=== PATIENT | female | born 1945 | race Caucasian/White ===

== ENCOUNTER → 2023-11-25 11:55 | Outpatient (REF) | payer OTHER, SELFPAY | LOC: HWWDC 11:55 | PROVIDERS: ATTENDING PHYSICIAN Internal Medicine Geriatric Medicine | DX: Z12.31 Encounter for screening mammogram for malignant neoplasm of breast (principal) | CPT/HCPCS: 77063; 77067 ==

== ENCOUNTER 2024-10-22 08:46 | Emergency (ER) | payer OTHER, SELFPAY ==
[2024-10-22 09:10] VITALS: BP 140/83
[2024-10-22 11:22] VITALS: BP 136/75
--- NOTE | 2024-10-22 11:28 | ED.GENMED ---
History of Present Illness
General
Chief Complaint: DVT/Possible Blood Clot
Source: patient
Time Seen by Provider: 10/22/24 09:59
History of Present Illness
History of Present Illness:
This patient is an 79-year-old female presents emergency department with complaints of redness and a 'bump' at the right anterior jimenez that she first noticed today. She denies any other complaints. She was on her way to the hospital to visit her
and decided to come to the emergency department to have it evaluated. She denies fever, chills, chest pain, shortness of breath, recent injury, recent trauma, drainage, numbness, tingling, weakness, foreign body sensation, or other
complaints. Patient saw her primary care doctor yesterday with a clean bill of health
Past History
Past History
ED Past Medical History: HTN and Other (Arthritis)
ED Past Surgical History: Other (n/a)
Social History
Tobacco: Non-smoker
Alcohol: None
Drug: None
Personal:
Living: with family
Phy Exam
Physical Exam
Physical Exam:
GENERAL: Alert , in no apparent distress
EYE: pupils equal and round
NECK: Supple, no significant adenopathy.
ENT: o/p clr, mmm.
CARDIAC: Regular rate and rhythm .
LUNGS: Clear breath sounds bilaterally, no acute respiratory distress, no wheezes/rales/rhonchi
ABDOMEN: Soft, without focal tenderness, no r/g, no cvat
NEUROLOGICAL: Alert and oriented, no focal neuro deficits
SKIN: Warm and dry, skin intact.
MUSCULOSKELETAL: No edema, well perfused. There is a specific area noted at the right mid jimenez with mild soft tissue swelling, redness, warmth, minimal tenderness to palpation. No streaking, fluctuance, crepitus, drainage, or other abnormalities.
No calf tenderness, normal distal pulses
PSYCH: Normal and appropriate interaction.
Course
Orders/Labs/Results
Orders:
Orders
10/22/24 09:14
Legs, Right US [US Periph Venous LOWER Ext RT] Urgent
Comment:
Reason For Exam: pain redness
10/22/24 11:48
Cephalexin Monohydrate [Keflex] 500 mg PO NOW STA
Vital Signs
Initial and Last Documented VS:
Initial Vital Signs
Temp Pulse Resp BP Pulse Ox
98.1 F 62 16 140/83 99
10/22/24 09:10 10/22/24 09:10 10/22/24 09:10 10/22/24 09:10 10/22/24 09:10
Last Documented Vital Signs
Temp Pulse Resp BP Pulse Ox
98.1 F 71 16 136/75 100
10/22/24 09:10 10/22/24 11:22 10/22/24 11:22 10/22/24 11:22 10/22/24 11:22
Update Note
Update Note:
Patient presents to the Emergency Department with red area on leg
Number and Complexity of Problems Addressed at the Encounter
� Chronic conditions affecting care:
� Acute Exacerbation and/or Progression of Chronic Illness:
� Differential Diagnosis includes: But not limited to superficial thrombophlebitis, cellulitis, abscess, nonspecific rash, etc. etc.
Amount and/or Complexity of Data to be Reviewed and Analyzed
� I performed an independent evaluation of and my interpretation is:
EKG:
CT:
Xrays:
Laboratory Studies:
Other:us No evidence of DVT of the right lower extremity.
Possibly thrombosed varicose veins at the area of interest. Nonocclusive.
� Review of other/old records reveals:
� Clinical information was obtained by an independent historian:
� Prescriptions/Medications Considered but not given:
� Further testing considered but not performed:
Risk of Complications and/or Morbidity or Mortality of Patient Management
� Social determinants of health affecting care:
� Discussion with other providers (PCP, Hospitalists, Consultants, etc):
� Escalation of care including admission/observation vs risk of discharge considered: Strongly suspect cellulitis without associated abscess based on physical exam and history. Recommend close follow-up, daily pictures to
monitor evolution, p.o. antibiotics, discussed with patient importance of follow-up and reasons to return to the ER. US does suggest possibility of thrombosed superficial vein, willencourage elevation,NSAIDS as tolreated as well.
ED Attending Note
-
Portions of this chart may have been created with voice recognition software.� Occasional wrong word or��sound alike� substitutions may have occurred due to the inherent limitations of voice recognition software.
Discharge Plan
Departure
Patient Disposition: Home (Routine Discharge)
Date of Disposition: 10/22/24
Time of Disposition: 11:48
Patient with high blood pressure during this ER visit?: Yes
Condition: Good
Discharge Problem:
Cellulitis
Instructions: Cellulitis (Skin Infection), Adult (DC), BLOOD PRESSURE
Prescriptions:
New
cephalexin 500 mg capsule
500 mg PO Q6H 7 Days Qty: 28 0RF
No Action
ibuprofen [Advil Liqui-Gel] 200 MG capsule
400 mg PO BID PRN (Reason: pain)
amlodipine 5 MG tablet
5 mg PO DAILY
valsartan 160 MG tablet
160 mg PO DAILY
calcium carbonate-vitamin D3 1 EACH tablet
1 ea PO DAILY
Referrals:
Eliza Montesinos MD [Family Provider, Internal Medicine] - 10/24/24
Activity Restrictions/Additional Instructions:
IF YOU DEVELOP INCREASING REDNESS, SWELLING, OR PAIN, ANY DRAINAGE, FEVER, CHILLS, NUMBNESS, GET WORSE, DO NOT GET BETTER, OR OTHER WORRISOME SIGNS, PLEASE RETURN TO THE ER IMMEDIATELY!
Interventions
Interventions:
*Risk Screen - Suicide Last Done: 10/22/24 09:10
*Neglect/Abuse Screening Last Done: 10/22/24 09:10
ED-Skin Assessment Last Done: 10/22/24 11:22
Discharge Date and Time
Print Language: [email or web address]
[2024-10-22] MEDS: KEFLEX 500 MG PO (11:55)
== END 2024-10-22 12:28 | disposition home or self-care (01) ==
LOC: EMR 08:46
PROVIDERS: EMERGENCY PHYSICIAN Emergency Medicine; FAMILY PHYSICIAN Internal Medicine Geriatric Medicine
DX: L03.115 Cellulitis of right lower limb (principal); M79.604 Pain in right leg; I10 Essential (primary) hypertension; M19.90 Unspecified osteoarthritis, unspecified site; Z88.8 Allergy status to other drugs, medicaments and biological substances
CPT/HCPCS: 99284; 93971